=== PATIENT | male | born 1970 | race Caucasian/White ===

== ENCOUNTER 2023-06-27 10:03 | Outpatient (CLI) | payer BC, SELFPAY | END 2023-06-27 10:04 | disposition home or self-care (01) | PROVIDERS: PCP Family Medicine; Visit Provider Internal Medicine | DX: Z00.00 Encounter for general adult medical examination without abnormal findings (principal); I10 Essential (primary) hypertension; E78.5 Hyperlipidemia, unspecified; R79.89 Other specified abnormal findings of blood chemistry | CPT/HCPCS: 80053; 80061 ==

== ENCOUNTER 2023-07-05 07:02 | Outpatient (CLI) | payer BC, SELFPAY ==
--- NOTE | 2023-07-05 07:15 | CRLHL7_ITS ---
For Patients: As a result of the Cures Act, medical imaging exams and procedure reports are released immediately into your electronic medical record. You may view this report before your referring provider. If you have questions, please contact your health care provider. INDICATION: Elevated liver function tests. TECHNIQUE: Right upper quadrant ultrasound. FINDINGS: The liver is mildly heterogeneous in echotexture. Small cyst left hepatic lobe measuring 2.4 x 2.1 x 2.2 cm. The pancreas although incompletely visualized is normal where seen. Normal gallbladder without stones or sludge. No gallbladder wall thickening or pericholecystic fluid. The gallbladder wall measures 3 mm. The common bile duct measures 5 mm. No hydronephrosis of the right kidney which measures 13.4 x 4.8 x 6 cm. The renal cortex measures 1.5 cm in thickness. Small cyst superior pole right kidney measuring 1.8 x 1.8 x 1.8 cm. The visualized proximal abdominal aorta is of normal caliber measuring 2.8 cm. No right upper quadrant ascites. IMPRESSION: 1. Mildly coarsened or heterogeneous hepatic echotexture. 2. Left hepatic lobe cyst. Right renal cyst. 3. Incomplete visualization of the pancreas. Dictated by Jovani Heredia MD @ 07/05/2023 11:15:27 AM (Electronically Signed)
== END 2023-07-05 07:03 | disposition home or self-care (01) ==
LOC: US 07:03
PROVIDERS: PCP Internal Medicine; Visit Provider Internal Medicine
DX: R79.89 Other specified abnormal findings of blood chemistry (principal); N28.1 Cyst of kidney, acquired; K76.89 Other specified diseases of liver
CPT/HCPCS: 76705

== ENCOUNTER 2024-02-23 09:55 | Outpatient (CLI) | payer OTHER, SELFPAY ==
--- OUTSIDE RECORDS SUMMARY | 2024-02-27 17:17 | XMS_ITS | Clinical Summary ---
Author Organization [facility] Address [place], [place] [address] Care Team Providers Care Earth Moving Technician Name Role Phone Per Kamara MD Primary Care Provider Allergies Active Allergy Reactions Criticality Noted Date Comments Erythromycin 08/25/2007 intorence to Medications Medication Sig Dispensed Refills Start Date End Date Status citalopram (CELEXA) 20 mg tablet TAKE ONE TABLET DAILY 30 tablet 0 09/09/2011 Active Active Problems Problem Noted Date Diagnosed Date Anxiety disorder; NOS OCD and ANN-MARIE symptoms 12/08 Dysthymic disorder 08/20/2008 Adjustment disorder with mixed anxiety and depre ssed mood 07/19/2008 Resolved Problems Problem Noted Date Diagnosed Date Resolved Date Major depressive disorder, r ecurrent episode, unspecified 07/19/2008 07/19/2008 Anxiety state, unspecified 07/19/2008 1 Family History Medical History Relation Name Comments Psychiatric illness Brother depressi on (seasonal) Psychiatric illness Maternal Grandmother depression Psychiatric illness Mother depressi on Relation Name Status Comments Brother Maternal Grandmother Mother Social History Tobacco Use Types Packs/Day Years Used Date Smoking Tobacco: Never Alcohol Use Standard Drinks/Week Comments Yes 12.5 (1 standard dri nk = 0.6 oz pure alcohol) moderate (he expresses some concern about how much he is drinking on 1.7.10 Sex and Gender Information Value Date Recorded Sex Assigned at Not on file Gender Identity Not on file Sexual Orientation Not on file Obstetrics History Last Filed Vital Signs Vital Sign Reading Time Taken Comments Blood Pressure 120/80 02/19/2014 2:55 PM CDT Pulse 60 02/19/2014 2:55 PM CDT Temperature 36.9 ??C (98.4 ??F) 04/03/2011 10:34 AM C DT Respiratory Rate 18 12/08/2010 11:02 AM CDT Oxygen Saturation - - Inhaled Oxygen Concentration - - Weight 95.3 kg (210 lb) 04/03/2011 10:34 AM CDT Height - - Body Mass Index - - Plan of Treatment Health Maintenance Due Date Last Done Comments Tdap 1981 Depression screening for age 12+ 1982 HIV for age 15-65 1985 BMI (ht and wt on same day) for age 18+ 1988 Hepatitis C screening for ag e 18-79 1988 Tetanus booster 1990 Colonoscopy through age 75 2015 Lipids for age 45-75 2015 Zoster (shingles) series for age 50+ (1 of 2) 2020 COVID-19 vaccine series (2022-24 season) 2023 Influenza for age 50-64 05/20/2024 Pneumococcal series for age 6-64 Aged Out No longer eligible based on patient's age to complete this topic Care Teams Earth Moving Technician Relationship Specialty Start Date End Date Per Kamara MD [address] [place] [address] [place] [address] PCP - General 08/25/07
--- OUTSIDE RECORDS SUMMARY | 2024-02-27 17:17 | XMS_ITS ---
Author Organization [facility] Address [address] [place] [address] Care Team Providers Care General Intern Name Role Phone Unavailable Unavailable Unavailable Surgery Details Not on file Complications Check Surgery Details section. Procedure Estimated Blood Loss Check Surgery Details section. Procedure Findings Check Surgery Details section. Procedure Specimens Taken Check Surgery Details section.
--- OUTSIDE RECORDS SUMMARY | 2024-02-27 17:17 | XMS_ITS | Referral Summary ---
Author Organization [facility] Address [address] [place] [address] Care Team Providers Care Field Technical Specialist Name Role Phone Unavailable Primary Care Provider Unavailabl e Source Comments Patient records contain information from all sites at [facility]. For routine questions regarding patient records, call [phone] during business hours, M-F 8:00 AM - 5:00 PM Central Time. Record requests for emergency care only can be directed to [phone] at any time.[facility] Allergies Active Allergy Reactions Criticality Noted Date Comments Erythromycin GI intolerance 08/25/2007 intorence to Medications Medication Sig Dispensed Refills Start Date End Date Status cholecalciferol (VITAMIN D3) 125 mcg (5,000 Unit) tablet Take 1 tablet by mouth daily. 09/10/2013 Active amLODIPine (NORVASC) 10 mg tablet Take 10 mg by mouth daily. 03/23/2022 Active atorvastatin (LIPITOR) 20 mg tablet Take 20 mg by mouth at bedtime. 04/19/2022 Active metoprolol succinate (TOPROL-XL) 50 mg 24 hr tablet Take 50 mg by mouth daily. 03/12/2022 Active sildenafiL (VIAGRA) 100 mg tablet TAKE ONE-HALF TABLET(50MG) BY MOUTH DAILY NEEDED FOR SEXUAL ACTIVITY 04/19/2022 Active Viibryd 40 mg tablet Take 40 mg by mouth daily. with food 02/04/2022 Active propranoloL (INDERAL) 10 mg tablet Take 10 mg by mouth every 8 (eight) hours. Active multivitamin-minerals -KH-jqmsodac-nefidc (CENTRUM SILVER) 0.4 mg-300 mcg- 250 mcg tablet Take 1 tablet by mouth daily. Active lithium carbonate (ESKALITH) 150 mg capsule Take 10 mg by mouth 3 (three) times a day. Active Active Problems Patient Care Coordination No te Formatting of this note migh t be different from the original. [facility] Colon Cancer Screening Last colon screen: Colonoscopy Year: 2019 First Degree Relative with Cancer: Unknown Prep: Unknown - previous procedure not completed at [facility] Suite: Unknown Results: Unknown Next Colon screen: Colonoscopy Year: 2022 Prostate Cancer Screening Next PSA: Screening AAA (male) AAA screening: Not indicated at this time Bone Mineral Density Last BMD: Patient has never had a BMD Next BMD: Age 70 per male protocol HIV/HCV Screening completed: 2021 Cardiology: Last EC Next EC Lipoprotein (a): Completed Coronary Calcium Scoring completed: Completed 2021 Problem Noted Date Diagnosed Date Obesity Body Mass Index 30-39.9 Adult 04/26/2022 Polyp Colon Adenomatous Personal History 022 Overview: 1 tubular adenoma in 2016; negative in 2019 Melanoma Family History 04/26/2022 Depression Major Recurrent Moderate 04/06/2013 Overview: Major depressive disorder, recurrent episode, Moderate Resolved Problems Problem Noted Date Diagnosed Date Resolved Date Obstructive Sleep Apnea Adult 04/26/2022 04/26/2022 Immunizations Name Administration Dates Next Due Influenza, Injectable, Mdck, Preservative Free, Quadrivalent 06/27/2020 RZV (SHINGRIX) 06/08/2021,04/06/2021 SARS-COV-2 (COVID-19) - PFIZ ER (Discontinued)(12 years or older) 08/19/2021,01/03/2021,12/13/2020 Tdap 09/09/2013 influenza vaccine quad (FLUZ ONE/FLUARIX) (6 months and older)(PF) 07/17/2021 Social History Tobacco Use Types Packs/Day Years Used Date Smoking Tobacco: Never Smokeless Tobacco: Never Tobacco Cessation:Counseling Given: Not Answered Alcohol Use Standard Drinks/Week Comments Yes 3 (1 standard drink = 0.6 oz pur e alcohol) Humiliation, Afraid, Rape, and Kick questionnair e Answer Date Recorded Within the last year, have y ou been afraid of your partner or ex-partner? No 04/23/2022 Within the last year, have y ou been humiliated or emotionally abused in other ways by your partner or ex-partner? No Within the last year, have y ou been kicked, hit, slapped, or otherwise physically hurt by your partner or ex-partner? No 04/23/2022 Within the last year, have y ou been raped or forced to have any kind of sexual activity by your partner or ex-partner? No 04/23/2022 Social Connection and Isolat ion Panel [NHANES] Answer Date Recorded In a typical week, how many times do you talk on the phone with family, friends, or neighbors? More than three times a week 04/23/2022 How often do you get togethe r with friends or relatives? More than three times a week 04/23/2022 How often do you attend chur or restorationism services? Never 04/23/2022 Do you belong to any clubs o r organizations such as congregational groups, unions, fraternal or athletic groups, or school groups? Yes 04/23/2022 How often do you attend meet ings of the clubs or organizations you belong to? More than 4 times per year 04/23/2022 Are you , , di vorced, , never , or living with a partner? 04/23/2022 AUDIT-C Answer Date Recorded Q1: How often do you have a drink containing alc ohol? 2-3 times a week 04/23/2022 Q2: How many drinks containi ng alcohol do you have on a typical day when you are drinking? 1 or 2 04/23/2022 Q3: How often do you have si x or more drinks on one occasion? Never 04/23/2022 Overall Financial Resource Strain (CARDIA) Answe r Date Recorded How hard is it for you to pa y for the very basics like food, housing, medical care, and heating? Not hard at all 04/23/2022 PHQ-2 Answer Date Recorded PHQ-2 Score 2 04/23/2022 [facility] Occup[facility] - Occupational Stress Questionnaire Answer Date Recorded Do you feel stress - tense, restless, nervous, or anxious, or unable to sleep at night because your mind is troubled all the time - these days? Rather much 04/23/2022 Exercise Vital Sign Answer Date Recorde d On average, how many days pe r week do you engage in moderate to strenuous exercise (like a brisk walk)? 7 days 04/23/2022 On average, how many minutes do you engage in exercise at this level? 30 min 04/23/2022 Hunger Vital Sign Answer Date Recorded Within the past 12 months, y ou worried that your food would run out before you got the money to buy more. Never true 04/23/20 Within the past 12 months, t he food you bought just didn't last and you didn't have money to get more. Never true 04/23/2022 PRAPARE - Transportation Answer Date Re corded In the past 12 months, has l ack of transportation kept you from medical appointments or from getting medications? No 01/2022 In the past 12 months, has l ack of transportation kept you from meetings, work, or from getting things needed for daily living? No 04/23/2022 Housing Stability Vital Sign Answer Selwyn e Recorded In the last 12 months, was t here a time when you were not able to pay the mortgage or rent on time? No 04/23/2022 In the last 12 months, how many places have you lived? 1 04/23/2022 In the last 12 months, was t here a time when you did not have a steady place to sleep or slept in a nursing home (including now)? No 04/23/2022 Nutrition Answer Date Recorded Nutrition: EVOO Fat Source No 04/23 On average, how many serving s of fruits and vegetables do you eat per day (serving size is equal to 1 cup or approximately the size of a tennis ball)? 2-3 04/23/2022 Dental Answer Date Recorded Dental: Regular Dentist Yes 04/23/20 Employment Answer Date Recorded Employment status Employed and actively working without restrictions 04/23/2022 Education Answer Date Recorded What is the highest level of school you have completed or the highest degree you have received? Master's degree (e.g., MA, MS, [place], MEd, LEGAL BILLING COORDINATOR, KINJAL) 04/23/2022 Sex and Gender Information Value Date Recorded Sex Assigned at Male 04/23/2022 2:45 PM CDT Gender Identity Male 04/23/2022 2:45 PM CDT Sexual Orientation Straight 04/23/2022 2: 45 PM CDT Last Filed Vital Signs Vital Sign Reading Time Taken Comments Blood Pressure 120/78 04/26/2022 1:19 PM CDT Pulse 66 04/26/2022 1:19 PM CDT Temperature 35.9 ??C (96.6 ??F) 04/26/2022 1:19 PM CD T Respiratory Rate - - Oxygen Saturation - - Inhaled Oxygen Concentration - - Weight 107 kg (236 lb 12.4 oz) 04/26/2022 1:19 P M CDT Height 182 cm (5' 11.65) 04/26/2022 1:19 PM CDT Body Mass Index 32.42 04/26/2022 1:19 PM CDT Plan of Treatment Not on file Medical Devices Implanted Type Area Sales Branch Manager Device Identifier Shelf Expiration Date Model / Serial / Lot Mesh Or Patch Mesh or Patch Left: Abdomen Procedures Procedure Name Priority Date/Time Associated Diagnosis Comments GLUCOSE, FASTING, S/P Routine 04/26/2022 9:09 AM CDT [facility] Testing Adult HCV AB SCRN W/REFLEX TO HCV PCR, S Routine 04/26/2022 9:09 AM CDT [facility] Laboratory Testing Adult HIV-1/-2 AG AND AB SCREEN, PLASMA Routine 04/26/2022 9:09 AM CDT [facility] Laboratory Testing Adult LIPID PANEL, S Routine 04/26/2022 9:09 AM CDT Mult[facility]ystem Laboratory Testing Adult from Last 3 Months or Most Recently Relevant to Health Maintenance Results * HIV-1/-2 Ag and Ab Screen, Plasma (04/26/2022 9:09 AM CDT) Pathologist [facility] HIV-1/-2 Ag and Ab Screen, P Negative Negative 04/26/2022 2:11 PM CDT [facility] Comment: Negative result does not rule out HIV infection. If exposure to HIV infection occurred <14 days ago, contact the laboratory to request addition of HIV-1 RNA detection / quantification test (HIVQN). Blood (Blood, Venous) 04/26/2022 9:09 AM CDT 04/26/2022 1:08 PM CDT Blaine Jean Baptiste M.D. LAB MICROBIOLOGY - BLOOD ORDERABLES [facility] [address] [place] [address] [facility] Dept. of Laboratory Medicine and Pathology [address] [place] [address] * Lipid Panel (04/26/2022 9:09 AM CDT) Triglycerides 84 mg/dL 04/26/2022 10:12 AM CDT DTL Comment: ----REFERENCE VALUE---- Normal: <150 mg/dL Borderline High: 150-199 mg/dL High: 200-499 mg/dL Very High: > or =500 mg/dL Cholesterol, Total 152 mg/dL 2021 10:12 AM CDT DTL Comment: ----REFERENCE VALUE---- Desirable: < 200 mg/dL Borderline High: 200 - 239 mg/dL High: > or = 240 mg/dL Cholesterol, LDL, Calculated 86 mg/dL 04/26/2022 10:12 AM CDT DTL Comment: ----REFERENCE VALUE---- Desirable: <100 mg/dL Above Desirable: 100-129 mg/dL Borderline High: 130-159 mg/dL High: 160-189 mg/dL Very High: >=190 mg/dL ----ADDITIONAL INFORMATION---- LDL cholesterol calculated using the Prather/NIH equation. Cholesterol, HDL, S 50 >=40 mg/dL 04/26/2022 10:12 AM CDT DTL Cholesterol, Non-HDL, Calculated 102 mg/dL 04/26/2022 10:12 AM CDT DTL Comment: ----REFERENCE VALUE---- Desirable: <130 mg/dL Above Desirable: 130-159 mg/dL Borderline High: 160-189 mg/dL High: 190-219 mg/dL Very High: > or =220 mg/dL Fasting (8 HR or more) Yes 04/26/2022 9:44 AM CDT DTL Blood (Blood, Venous) 04/26/2022 9:09 AM CDT 04/26/2022 9:44 AM CDT Blaine Jean Baptiste M.D. LAB BLOOD ADD-ON [facility] [address] [place] [address], [facility] [address] [place] [address] * HCV Ab Scrn w/Reflex to HCV PCR, Serum (04/26/2022 9:09 AM CDT) Pathologist [facility] HCV Ab Screen, S Negative Negative 04/26/2022 3:28 PM CDT [facility] Comment:Uaomjq-ck-ytikox rat io is <1.00. Blood (Blood, Venous) 04/26/2022 9:09 AM CDT 04/26/2022 1:08 PM CDT Blaine Jean Baptiste M.D. LAB MICROBIOLOGY - BLOOD ORDERABLES [facility] [address] [place] [address] [facility] Dept. of Laboratory Medicine and Pathology [address] [place] [address] * (ABNORMAL) Glucose, Fasting (04/26/2022 9:09 AM CDT) Pathologist [facility] Glucose, P 103(H) 70 - 100 mg/dL 04/26/2022 9:59 AM CDT DTL Last Intake 15 hr 04/26/2022 9:09 AM CDT DTL Blood (Blood, Venous) 04/26/2022 9:09 AM CDT 04/26/2022 9:43 AM CDT Blaine Jean Baptiste M.D. LAB BLOOD NON ADD -ON [facility] [address] [place] [address], [place] [facility] [address] [place] [address] from Last 3 Months or Most Recently Relevant to Health Maintenance
--- OUTSIDE RECORDS SUMMARY | 2024-02-27 17:17 | XMS_ITS | Clinical Summary ---
Author Organization [facility] Address [address] [place] [address] Care Team Providers Care Mental Health Coordinator Name Role Phone Unavailable Primary Care Provider Unavailabl e Source Comments Patient records contain information from all sites at [facility]. For routine questions regarding patient records, call [phone] during business hours, M-F 8:00 AM - 5:00 PM Central Time. Record requests for emergency care only can be directed to [phone] at any time.[facility] Allergies Active Allergy Reactions Criticality Noted [...] mouth every 8 (eight) hours. Active multivitamin-minerals -VZ-hmwfcybf-pistdq (CENTRUM SILVER) 0.4 mg-300 mcg- 250 mcg [...] Unknown - previous procedure not completed at [facility] Suite: Unknown Results: Unknown Next Colon screen: [...] (FLUZ ONE/FLUARIX) (6 months and older)(PF) 07/17/2021 Family History Relation Name Status Comments Brother Alive depresison, HTN , hypercholesterolemia, asthma Child Alive anxiety, depres donavan Daughter Alive hypothyroidism Father Alive HTN, hyperchole sterolemia, hx melanoma Maternal Grandmother depress ion Mother Alive depression Paternal Grandfather (Age 58) di ed of lung cancer secondary to beryllium Paternal Grandmother (Age 75) di ed of heart disease; dm2, obesity Social History Tobacco Use Types Packs/Day Years [...] 04/23/2022 How often do you attend chur ch or christianity services? Never 04/23/2022 Do you belong to any clubs o r organizations such as restoration groups, unions, fraternal or athletic groups, or [...] Answer Date Recorded PHQ-2 Score 2 04/23/2022 [facility] - Occupational Stress Questionnaire Answer Date Recorded [...] place to sleep or slept in a residential (including now)? No 04/23/2022 Nutrition Answer Date [...] Master's degree (e.g., MA, MS, [place], MEd, SAP PPM CONSULTANT, KINJAL) 04/23/2022 Sex and Gender Information Value [...] 04/26/2022 1:19 PM CDT Plan of Treatment Health Maintenance Due Date Last Done Comments CT Colonography 1970 Cologuard 1970 Colonoscopy 1970 Colorectal Cancer Surveillance 1970 Depression Monitoring (PHQ-9) 1970 Hepatitis B Vaccines (1 of 3 - 19+ 3-dose series) 1989 COVID-19 Vaccine ( season) 2023 07/06/2022, 04/20/2022, 08/19/2021, Additional history exists DTaP,Tdap,and Td Vaccines (2 - Td or Tdap) 09/09/2023 09/09/2013 Fasting Glucose for Diabetes Screening 04/26/2025 04/26/2022, 04/26/2022 Lipid (Cholesterol) Screening 04/26/2027 04/26/2022 Zoster Vaccines Completed 06/08/2021, 04/06/2021 HIV Screening Completed 04/26/2022 Hepatitis C Screening Completed 04/26/2022 Influenza Vaccine Completed 06/06/2023, , 07/17/2021, Additional history exists Pneumococcal vaccine (0-64 years) Aged Out No longer eligible based on patient's age to complete this topic Medical Devices Implanted Type Area Bonderite Operator Device Identifier Shelf Expiration Date Model / [...] Ab Screen, Plasma (04/26/2022 9:09 AM CDT) HIV-1/-2 Ag and Ab Screen, P Negative Negative 04/26/2022 2:11 PM CDT [facility] Comment: Negative result does not rule out HIV infection. If exposure to HIV infection occurred <14 days ago, contact the laboratory to request addition of HIV-1 RNA detection / quantification test (HIVQN). Blood (Blood, Venous) 04/26/2022 9:09 AM CDT 04/26/2022 1:08 PM CDT Blaine Jean Baptiste M.D. LAB MICROBIOLOGY - BLOOD ORDERABLES [facility] [address] [place] [address] [facility] Dept. of Laboratory Medicine and Pathology [address] [place] [address] * Lipid Panel (04/26/2022 9:09 AM CDT) [...] Blaine Jean Baptiste M.D. LAB BLOOD ADD-ON [facility] [address] [place] [address], [facility] [address] [place] [address] * HCV Ab Scrn w/Reflex to HCV PCR, Serum (04/26/2022 9:09 AM CDT) HCV Ab Screen, S Negative Negative 04/26/2022 3:28 PM CDT [facility] Comment:Oucuun-cn-ezpezb rat io is <1.00. Blood (Blood, Venous) 04/26/2022 9:09 AM CDT 04/26/2022 1:08 PM CDT Blaine Jean Baptiste M.D. LAB MICROBIOLOGY - BLOOD ORDERABLES [facility] [address] [place] [address] [facility] Dept. of Laboratory Medicine and Pathology [address] [place] [address] * (ABNORMAL) Glucose, Fasting (04/26/2022 9:09 AM CDT) Glucose, P 103(H) 70 - 100 mg/dL 04/26/2022 9:59 AM CDT DTL Last Intake 15 hr 04/26/2022 9:09 AM CDT DTL Blood (Blood, Venous) 04/26/2022 9:09 AM CDT 04/26/2022 9:43 AM CDT Blaine Jean Baptiste M.D. LAB BLOOD NON ADD -ON Performing Organization Address [facility] Co de Phone Number [facility] [address] [place] [address], [facility] [address] [place] [address] from Last 3 Months or Most Recently Relevant to Health Maintenance
== END 2024-02-23 09:56 | disposition home or self-care (01) ==
LOC: NFLDREF 02-27 17:15
PROVIDERS: PCP Internal Medicine; Referring Provider Internal Medicine; Visit Provider Internal Medicine
DX: K76.0 Fatty (change of) liver, not elsewhere classified (principal); E66.9 Obesity, unspecified
CPT/HCPCS: 84450; 84460

== ENCOUNTER 2025-01-03 16:56 | Outpatient (CLI) | payer OTHER, SELFPAY | END 2025-01-03 16:57 | disposition home or self-care (01) | LOC: NFLDREF 01-09 01:14 | PROVIDERS: PCP Internal Medicine; Referring Provider Internal Medicine; Visit Provider Nurse Practitioner | DX: R00.2 Palpitations (principal) | CPT/HCPCS: 80048; 84443; 84484 ==

== ENCOUNTER 2025-01-08 09:40 | Outpatient (CLI) | payer OTHER, SELFPAY | END 2025-01-08 09:41 | disposition home or self-care (01) | LOC: LKVREF 13:28 | PROVIDERS: PCP Internal Medicine; Referring Provider Internal Medicine; Visit Provider Family Medicine | DX: K76.0 Fatty (change of) liver, not elsewhere classified (principal); E78.5 Hyperlipidemia, unspecified; Z12.5 Encounter for screening for malignant neoplasm of prostate | CPT/HCPCS: 80061; 80076; G0103 ==

== ENCOUNTER 2025-01-14 07:56 | Outpatient (CLI) | payer OTHER, SELFPAY | END 2025-01-14 07:57 | disposition home or self-care (01) | LOC: RAD 07:57 | PROVIDERS: PCP Internal Medicine; Visit Provider Family Medicine | DX: R00.2 Palpitations (principal); I51.7 Cardiomegaly | CPT/HCPCS: 93306 ==

== ENCOUNTER 2025-04-22 07:35 | Outpatient (CLI) | payer OTHER, SELFPAY ==
--- NOTE | 2025-04-22 08:44 | P.ANES_ITS ---
Anesthesia Charges Start Date/Time Anesthesia Start Date: 04/22/25 Anesthesia Start Time: 08:08 Stop Date/Time Anesthesia Stop Date: 04/22/25 Anesthesia Stop Time: 08:43 Coding CPT Codes CPT Codes: MARCUS LWR INTST NDSC NOS - 10257 ([id number]) P2 - PATIENT W/MILD SYST DISEASE, QK - MASONRY INSTALLER 2-4 CNCRNT ANES PROC, QX - LEAD PL SQL DEVELOPER SVC W/ MD MED DIRECTION
--- NOTE | 2025-04-22 08:44 | W.ANESCHARGE ---
Anesthesia Charges Start Date/Time Anesthesia Start Date: 04/22/25 Anesthesia Start Time: 08:08 Stop Date/Time Anesthesia Stop Date: 04/22/25 Anesthesia Stop Time: 08:43 Coding CPT Codes CPT Codes: MARCUS LWR INTST NDSC NOS - 20868 ([id number]) P2 - PATIENT W/MILD SYST DISEASE, QK - FORMULA MAKER 2-4 CNCRNT ANES PROC, QX - TECHNICAL PROFESSIONAL SVC W/ MD MED DIRECTION
--- NOTE | 2025-04-22 08:57 | P.ANES_ITS ---
Anesthesia Charges Start Date/Time Anesthesia Start Date: 04/22/25 Anesthesia Start Time: 08:08 Stop Date/Time Anesthesia Stop Date: 04/22/25 Anesthesia Stop Time: 08:43 Coding CPT Codes CPT Codes: MARCUS LWR INTST NDSC NOS - 27564 ([id number]) P2 - PATIENT W/MILD SYST DISEASE, QK - SURGICAL SERVICES TECH 2-4 CNCRNT ANES PROC, QX - ENVIRONMENTAL SAMPLING TECHNICIAN SVC W/ MD MED DIRECTION
--- NOTE | 2025-04-22 08:57 | W.ANESCHARGE ---
Anesthesia Charges Start Date/Time Anesthesia Start Date: 04/22/25 Anesthesia Start Time: 08:08 Stop Date/Time Anesthesia Stop Date: 04/22/25 Anesthesia Stop Time: 08:43 Coding CPT Codes CPT Codes: MARCUS LWR INTST NDSC NOS - 57552 ([id number]) P2 - PATIENT W/MILD SYST DISEASE, QK - REFRIGERATION SPECIALIST 2-4 CNCRNT ANES PROC, QX - ONCOLOGY SOCIAL WORKER SVC W/ MD MED DIRECTION
== END 2025-04-22 07:36 | disposition home or self-care (01) ==
LOC: OP CLINIC 07:35
PROVIDERS: PCP Internal Medicine; Visit Provider Internal Medicine
DX: Z12.11 Encounter for screening for malignant neoplasm of colon (principal); D12.5 Benign neoplasm of sigmoid colon; Z86.0100 Personal history of colon polyps, unspecified
CPT/HCPCS: 00811; 00812; 45380; 88305; J2704

== ENCOUNTER 2025-05-17 08:15 | Outpatient (RCR) | payer OTHER, SELFPAY | END 2025-09-11 09:00 | disposition home or self-care (01) | PROVIDERS: PCP Internal Medicine; Visit Provider Internal Medicine | DX: M54.59 Other low back pain (principal); Z51.89 Encounter for other specified aftercare | CPT/HCPCS: 97110; 97162; 97530 ==

== ENCOUNTER 2025-05-24 11:59 | Emergency (ER) | payer OTHER, SELFPAY ==
--- OUTSIDE RECORDS SUMMARY | 2025-05-24 12:01 | XMS_ITS | Clinical Summary ---
Author Organization [facility] Address [address] [place] [id number] Care Team Providers Care Erp Analyst Name Role Phone Per Kamara MD Primary Care Provider Unava ilable Allergies Active Allergy Reactions Criticality Noted Date Comments Erythromycin 08/25/2007 intorence to Medications citalopram (CELEXA) 20 mg tablet TAKE ONE [...] 07/19/2008 07/19/2008 Anxiety state, unspecified 07/19/2008 1 Encounters Date Type Department Care Team Description 04/23/2025 Lab Requisition [facility] [phone] Bart Evans MD from Last 3 Months Family History Medical History Relation Name Comments [...] Recorded Sex Assigned at Not on file 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 Gender Identity Not on file Sexual Orientation Not on file Obstetrics History Last Filed Vital Signs Vital Sign Reading Time Taken Comments Blood Pressure 120/80 02/19/2014 2:55 PM CDT Pulse 60 02/19/2014 2:55 PM CDT Temperature 36.9 C (98.4 F) 04/03/2011 10:34 AM CDT Respiratory Rate 18 12/08/2010 11:02 AM CDT Oxygen Saturation - - Inhaled Oxygen Concentration - - Weight 95.3 kg (210 lb) 04/03/2011 10:34 AM CDT Height - - Body Mass Index - - Plan of Treatment Health Maintenance Due Date Last Done Comments Tetanus booster 1981 Depression screening for age 12+ 1982 HIV for age 15-65 1985 BMI (ht and wt on same day) for age 18+ 1988 Hepatitis C screening for age 18-79 1988 Hepatitis B series for 19+ (1 of 3 - 19+ 3-dose series ) 1989 Colonoscopy through age 75 2015 Lipids for age 45-75 2015 Pneumococcal series for age 50+ (1 of 1 - PCV) 020 Zoster (shingles) series for age 50+ (1 of 2) 08/07/20 20 COVID-19 vaccine series ( - season) Influenza Vaccine (#1) 2025 RSV vaccine for adults or pr egnancy (1 - 1-dose 75+ series) 2045 Procedures Procedure Name Priority Date/Time Associated Diagnosis Comments LAB TRACKING EVENT Routine 04/22/2025 8: 34 AM CDT PATH TISSUE EXAM Routine 04/22/2025 8:34 AM CDT from Last 3 Months Results * LAB TRACKING EVENT (04/22/2025 8:34 AM CDT) Other (Other) Client Collect / Unknown 04/22/2025 8:34 AM CDT 04/23/2025 6:55 AM CDT Bart Evans MD LAB BILL ONLY Final Result Performing Organization Address [facility]/ZIP Co de Phone Number [facility] [address] [place] [address], * PATH TISSUE EXAM (04/22/2025 8:34 AM CDT) Case Report Pathology Report Case: [id number] Authorizing Provider: Bart Evans MD Collected: 04/22/2025 0834 Ordering Location: [facility] Received: 04/23/2025 1156 Pathologist: Blayne Freeman MD Specimen: Sigmoid Polyp 04/24/2025 5:31 PM CDT [facility] Ready To Travel [facility] Final Diagnosis A) COLON, SIGMOID, POLYPECTOMIES: 1. Hyperplastic polyps (2) 04/24/2025 5:31 PM CDT [facility] at 1731 CDT Clinical Information High risk colon cancer surveillance. Personal history of colon polyps. 04/24/2025 5:31 PM CDT [facility] Gross Description A) Received in formalin are 2 mucosal fragments averaging 4 mm in greatest dimension, which are entirely submitted in one cassette. It is labeled with the patient's name and designated sigmoid colon multiple polyps. Sahra Espino 04/23/2025 12:10 PM 04/24/2025 5:31 PM CDT [facility] Microscopic Description The final diagnosis is based on microscopic examination of appropriate sections of all specimens. 04/24/2025 5:31 PM CDT [facility] Additional Information Interpreted at [facility] - [address] [address] 04/24/2025 5:31 PM CDT [facility] Ready To Travel [facility] Other (Sigmoid Polyp) 04/22/2025 8:34 AM CDT 04/23/2025 11:56 AM CDT Bart Evans MD PATHOLOGY/CYTOLOGY Final Res ult [facility] [address] [place] [address], from Last 3 Months Insurance [facility] [employer] Care Teams Erp Analyst Relationship Specialty Start Date End Date Per Kamara MD PCP - General 08/25/07
[2025-05-24 12:16] VITALS: BP 132/84; PULSE 55; RESP 18; TEMP 36.7; O2SAT 96; BMI 33.9
--- NOTE | 2025-05-24 12:44 | ED.GENADULT ---
HPI - General Adult General Chief complaint: Laceration/Wound Stated complaint: Left Hand laceration Time Seen by Provider: 05/24/25 12:00 History of Present Illness HPI narrative: Patient is a 54-year-old male who is up-to-date on tetanus who was making some furniture and cut his left dorsum of the hand over the skin between the index finger and thumb. He it is a fairly small laceration about a cm but it is little bit gaping. He has got normal neurovascular function of his hand he is updated on tetanus. No other chronic health issues of significance affecting his laceration. Related Data Home Medications ?Medication ?Instructions ?Recorded ?Confirmed cholecalciferol (vitamin D3) 125 125 mcg PO QDAY 04/19/22 03/19/25 mcg (5,000 unit) capsule multivitamin 1 tab PO QDAY 04/19/22 03/19/25 propranolol 10 mg tablet mg PO QDAY PRN 04/19/22 03/19/25 vilazodone 40 mg tablet 40 mg PO DAILY 04/19/22 03/19/25 bupropion HCl 150 mg 24 hr tablet, 150 mg PO QAM 03/19/25 03/19/25 extended release Previous Rx's ?Medication ?Instructions ?Recorded sildenafil 100 mg tablet 50 mg (1/2 x 100 mg) PO QDAY PRN 04/19/22 sexual activity #20 tabs zolmitriptan 5 mg tablet 5 mg PO ONCE PRN migraine headache 10/08/24 #30 tabs amlodipine 10 mg tablet 10 mg PO DAILY #90 tabs 03/19/25 atorvastatin 20 mg tablet 20 mg PO DAILY #90 tabs 03/19/25 metoprolol succinate 50 mg 50 mg PO DAILY #90 tabs 03/19/25 tablet,extended release 24 hr peg 3350-electrolytes 236 240 ml PO Q10M #4,000 mL 04/16/25 gram-22.74 gram-6.74 gram-5.86 gram solution (Golytely) Allergies Allergy/AdvReac Type Severity Reaction Status Date / Time Erythromycin Allergy Mild Nausea Uncoded 03/13/25 10:45 Macrolides AdvReac Unknown Uncoded 03/13/25 10:45 Review of Systems Status of ROS: Reports: 6 or more systems reviewed and unremarkable except as noted in History and below [facility] Surgical History History of arthroscopic knee surgery ?Z98.890 - Other specified postprocedural states (ICD-10) History of vasectomy ?Z98.52 - Vasectomy status (ICD-10) History of colonoscopy ?Z98.890 - Other specified postprocedural states (ICD-10) Family History Mother Hyperlipidemia Depression Father High blood pressure Brother Depression Social History Narrative: SOCIAL HISTORY: He is . 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 Two children in college. He runs 3 days per week for exercise. He walks his dog on the other days. He is sexually active. HABITS: No tobacco or recreational drug use. Alcohol use is about 4 drinks per week. What is your current living situation?: I presently have a place to live Problems where you live: no known problems In the past 12 months, utilities in danger of being shut off: no In past 12 months, lack of transportation kept you from medical appts, meetings, work, or getting things needed for daily living: no In the past 12 mos, have been you worried that your food would run out before you had money to buy more?: never true In the past 12 mos, the food you bought just didn't last and you didn't have money to buy more?: never true Smoking Status: Never smoker How often does anyone, including family, friends and others, physically hurt you: never How often does anyone, including family, friends and others, insult or talk down to you: never How often does anyone, including family, friends and others, threaten you with harm: never How often does anyone, including family, friends and others, scream or curse at you: never Exam Narrative: Exam Narrative: Objective: Vital signs are within normal limits There is a 1 cm cut through his dorsum of his hand on the left hand over the 1st meta carpal area. Does appear deep, his neurovascular and tendon function of his index and thumb or it examined in are normal. Const: Vital Signs, click to edit/add: Vital Signs - 24 hr 09/05/25 12:16 Temperature 98.1 F Pulse Rate [Pulse Oximeter] 55 L Respiratory Rate 18 Blood Pressure [Ri ght Upper Arm] 132/84 Pulse Oximetry 96 Oxygen Delivery Me thod Room Air Course Vital Signs Vital signs: Initial Vital Signs Temperature 98.1 F 05/24/25 12:16 Temperature Source Temporal Artery Scan 05/24/25 12:16 Pulse Rate 55 L 05/24/25 12:16 Respiratory Rate 18 05/24/25 12:16 Blood Pressure 132/84 05/24/25 12:16 Blood Pressure Mean 100 05/24/25 12:16 Pulse Oximetry 96 05/24/25 12:16 Oxygen Delivery Method Room Air 05/24/25 12:16 Vital Signs Temperature 98.1 F 05/24/25 12:16 Pulse Rate 55 L 05/24/25 12:16 Respiratory Rate 18 05/24/25 12:16 Blood Pressure 132/84 05/24/25 12:16 Pulse Oximetry 96 05/24/25 12:16 Oxygen Delivery Method Room Air 05/24/25 12:16 Temperature 98.1 F 05/24/25 12:16 Pulse Rate 55 L 05/24/25 12:16 Respiratory Rate 18 05/24/25 12:16 Blood Pressure 132/84 05/24/25 12:16 Pulse Oximetry 96 05/24/25 12:16 Oxygen Delivery Method Room Air 05/24/25 12:16 Medical Decision Making MDM Narrative Medical decision making narrative: Procedure: After sterile spray applied and irrigation the wound was injected with 1% xylocaine without epinephrine for anesthesia. Patient tolerated this well. The patient had 3 3-0 interrupted Ethilon sutures placed, good skin is approximation good hemostasis. This will be covered with bacitracin and and a bandage per nursing staff. He is up-to-date on tetanus. Suture removal in 7 days. Watch for redness or infection. Discharge Plan Discharge Clinical Impression: Laceration Patient Disposition: Home w/ Parent or Adult Condition: Improved Additional Instructions: Keep covered and dry today, may take the bandage off tomorrow and may shower bathe normally, watch for redness or infection, Tylenol or Advil for discomfort, your up-to-date on tetanus. Recheck if problems or concerns. Suture removal in 7 days at your clinic or Urgent Care. Activity Level: No Restrictions Discharge Diet: Regular Prescriptions: No Action propranolol 10 mg tablet PO QDAY PRN multivitamin Tablet 1 tab PO QDAY vilazodone 40 mg tablet 40 mg PO DAILY cholecalciferol (vitamin D3) 125 mcg (5,000 unit) capsule 125 mcg PO QDAY sildenafil 100 mg tablet 50 mg PO QDAY PRN (Reason: sexual activity) Qty: 20 5RF bupropion HCl 150 mg tablet extended release 24 hr 150 mg PO QAM atorvastatin 20 mg tablet 20 mg PO DAILY Qty: 90 3RF amlodipine 10 mg tablet 10 mg PO DAILY Qty: 90 3RF metoprolol succinate 50 mg tablet extended release 24 hr 50 mg PO DAILY Qty: 90 3RF zolmitriptan 5 mg tablet 5 mg PO ONCE PRN (Reason: migraine headache) Qty: 30 6RF Rx Instructions: Take at onset of migraine. OK to repeat once after 2 hrs as needed. peg 3350-electrolytes [Golytely] 236-22.74-6.74 -5.86 gram recon soln 240 ml PO Q10M Qty: 4000 0RF Rx Instructions: until fecal effluent is clear Follow Up/Referrals: Sol Murry MD [Primary Care Provider, Internal Medicine] Stand Alone Forms: [facility] Info Instructions
== END 2025-05-24 13:00 | disposition home or self-care (01) ==
LOC: ED 12:56
PROVIDERS: Emergency Provider Family Medicine; PCP Internal Medicine
DX: S61.412A Laceration without foreign body of left hand, initial encounter (principal); W26.9XXA Contact with unspecified sharp object(s), initial encounter
CPT/HCPCS: 12001; 99283; 99284

== ENCOUNTER 2025-09-05 16:22 | Outpatient (CLI) | payer OTHER, SELFPAY | END 2025-09-05 16:23 | disposition home or self-care (01) | PROVIDERS: PCP Internal Medicine; Visit Provider Internal Medicine | DX: R06.02 Shortness of breath (principal) | CPT/HCPCS: 80053; 84443 ==

== ENCOUNTER 2025-09-17 12:50 | Outpatient (CLI) | payer OTHER, SELFPAY ==
[2025-09-17] MEDS: PERFLUTREN LIPID MICROSPHERES 2 ML VIAL IVP (13:40)
[2025-09-17 14:05] VITALS: BP 150/76; PULSE 83; RESP 18
--- NOTE | 2025-09-17 14:20 | W.PM.STED ---
Stress Test Note Date Date of test: 09/17/25 Providers Primary care provider: Sol Murry Stress test physician: Jones Waters Stress Test Note Stress test ordered: Stress Echo Indication for test: dyspnea Stress test medicine: Definity Results discussion: This very nice patient presents for the above test, after discussion the risks benefits and side effects of the test, patient would like to continue. Cardiac stress test medical history form is reviewed entirely. Pretest EKG shows normal sinus rhythm with a ventricular rate 58, blood pressure is [address] wave Changes are noted. Following standard Johny protocol patient is exercised for a total time of 11 minutes 33 seconds, achieved a metabolic equivalent of all 12.1 Mets with a maximum heart rate of 146 which is 104% of the maximum, during this test he did not develop any symptoms suggestive of ischemia review of the tracings show no acute ST wave changes, for some mild ST wave depression noted laterally and inferiorly Of up to 1 mm, conditioning was felt to be good Impression: Negative electrographic portion of stress echo, subjectively negative Follow up suggested: await echo imaging results, these will be read by Cardiology, preliminary read by myself in the tech was negative, for wall motion abnormality, clinical correlation with the final read by Cardiology will be needed patient left this testing facility in good condition.
== END 2025-09-17 12:51 | disposition home or self-care (01) ==
LOC: STRESS 12:50
PROVIDERS: PCP Internal Medicine; Visit Provider Internal Medicine
DX: R06.02 Shortness of breath (principal)
CPT/HCPCS: 93016; 93325; 93351; Q9957